=== PATIENT | female | born 1970 | race Caucasian/White ===

== ENCOUNTER 2017-02-07 12:00 | Inpatient (IN) | payer BC ==
[~2017-02-07 12:00] MED LIST: ALLEGRA PO; ANTIVERT25 M1 PO; ANTIVERT25 MG PO; AUGMENTIN 875-1 EAC2 PO; AVONEX30 MCG/0.5 IM; BREO ELLIPTA 21 EACH INH; DARVOCET-N 1001 TAB PO; DOXYCYCLINE HY100 M3 PO; FLEXERIL10 MG PO; FLONASE16 GM NS; GILENYA0.5 MG PO; KEPPRA PO; MOTRIN600 MG PO; MULTIVITAMIN1 CAP; NASONEX17 G1; NORCO 5/325 TAB1 TAB PO; NORVASC5 MG PO; QVAR8.7 G1 IH; VALIUM2 M1 PO; VALIUM5 MG; VALIUM5 MG PO; VITAMIN D35000 UNI2 PO; ZOFRAN4 M2 PO; ZOFRAN4 MG PO
[2017-02-07] MEDS ORDERED: HYDROCODON-ACE1 EA16 PO (12:25)
[2017-02-07] MEDS ORDERED: ULTRAM50 M1 PO (12:25)
[2017-02-07] MEDS ORDERED: AMPYRA10 M1 PO (12:56)
[2017-02-07] MEDS ORDERED: BYSTOLIC5 M1 PO (12:58)
[2017-02-07] MEDS ORDERED: DYMISTA NASAL S23 G1 (12:59)
[2017-02-07] MEDS ORDERED: GILENYA0.5 M1 PO (12:59)
[2017-02-07] MEDS ORDERED: PRINIVIL20 M1 PO (12:59)
[2017-02-07] MEDS ORDERED: OMEPRAZOLE20 M3 PO (12:59)
[2017-02-07] MEDS ORDERED: PROAIR HFA8.5 GM INH (13:00)
[2017-02-07] MEDS ORDERED: NORVASC5 M2 PO (13:00)
[2017-02-07] MEDS ORDERED: IUD (13:00)
[2017-02-07 14:45] LABS: BASO % 0.3 % (0-2); EOSINOPHIL ABSOLUTE COUNT 0.6 tho/cmm (0.0-0.7); HCT-HEMATOCRIT 40.7 % (34.0-49.0); HGB-HEMOGLOBIN 13.7 gm/dl (12.0-15.5); IMMATURE GRANULOCYTES ABSOLUTE 0.02 tho/cmm (0-0.03); IMMATURE GRANULOCYTES PERCENT 0.3 % (0-0.3); LYMPH % 6.1 % (20-45); LYMPH ABSOLUTE COUNT 0.4 tho/cmm (0.8-4.5); MCH (MEAN CORPUSCULAR HGB) 30.4 pg (28.0-32.0); MCHC MEAN CORPUSCULAR HGB CONC 33.7 % (32.0-36.0); MCV (MEAN CELL VOLUME) 90.4 fl (82.0-96.0); MEAN PLATELET VOLUME 11.4 cmc (9.4-12.4); MONO % 13.6 % (0-12); NEUTROPHILS % 70.7 % (40-80); PLATELET COUNT 228 tho/cmm (150-450); RED CELL DISTRIBUTION WIDTH 14.2 % (12.4-16.4); WHITE BLOOD COUNT 7.1 tho/cmm (4.0-10.0)
[2017-02-07 14:59] LABS: ALB/GLOB RATIO 1.2 (0.8-2.0); ALBUMIN 3.7 g/dl (3.5-5.0); ALKALINE PHOSPHATASE 73 U/L (33-138); ALT/SGPT 54 U/L (12-78); ANION GAP 9 mmol/L (0-20); AST/SGOT 37 U/L (10-40); BILIRUBIN,TOTAL 0.4 mg/dl (0-1.5); BLOOD UREA NITROGEN 8 mg/dl (6-24); C-REACTIVE PROTEIN 1.5 mg/dl (0-0.9); CALCIUM 8.6 mg/dl (8.5-10.5); CARBON DIOXIDE-VENOUS 30 mmol/L (22-32); CHLORIDE 107 mmol/l (96-110); CREATININE 0.68 mg/dl (0.50-1.10); GLUCOSE 87 mg/dL (70-110); SODIUM 142 mmol/L (135-145); eGFR VALUE FOR BLACK >90 mL/Min
[2017-02-07 15:05] LABS: ESR-ERYTHROCYTE SED RATE 5 mm/hr (0-20)
[2017-02-08] MEDS ORDERED: PREDNISONE10 M1 PO (13:08)
[2017-02-08] MEDS ORDERED: FLORICAL TABLE1 EACH PO (14:47)
[2017-02-08] MEDS ORDERED: PREDNISONE10 M1 (14:49)
[2017-02-08] MEDS ORDERED: FIORICET 50-301 EAC1 PO (14:56)
== END 2017-02-08 15:25 | DRG 103 ==
LOC: 5EB 12:00
PROVIDERS: Internal Medicine; ADMIT Internal Medicine
DX: G43.909 Migraine, unspecified, not intractable, without status migrainosus (principal); Z68.42 Body mass index [BMI] 45.0-49.9, adult; I10 Essential (primary) hypertension; G35 Multiple sclerosis; K21.9 Gastro-esophageal reflux disease without esophagitis; J45.909 Unspecified asthma, uncomplicated; D35.02 Benign neoplasm of left adrenal gland; H53.149 Visual discomfort, unspecified; Z87.442 Personal history of urinary calculi; Z88.2 Allergy status to sulfonamides; Z88.1 Allergy status to other antibiotic agents; Z88.8 Allergy status to other drugs, medicaments and biological substances; E66.3 Overweight
CPT/HCPCS: A9577; J1100; J2405

== ENCOUNTER 2017-07-11 21:11 | Emergency (ER) | payer OTHER ==
[~2017-07-11] VITALS: Ht 157.5 cm; Wt 113.0 kg
[~2017-07-11 21:11] MED LIST changes: +AMPYRA10 M1 PO; +BYSTOLIC5 M1 PO; +DYMISTA NASAL S23 G1; +FIORICET 50-301 EAC1 PO; +FLORICAL TABLE1 EACH PO; +GILENYA0.5 M1 PO; +HYDROCODON-ACE1 EA16 PO; +IUD; +NORVASC5 M2 PO; +OMEPRAZOLE20 M3 PO; +PREDNISONE10 M1; +PREDNISONE10 M1 PO; +PRINIVIL20 M1 PO; +PROAIR HFA8.5 GM INH; +ULTRAM50 M1 PO
[2017-07-11] MEDS ORDERED: NORVASC10 M2 PO (21:21)
[2017-07-11] MEDS ORDERED: FLONASE ALLERG9.9 ML (21:22)
[2017-07-11] MEDS ORDERED: CEFTIN250 MG/51 PO (21:23)
[2017-07-11] MEDS ORDERED: TESSALON PERLE100 M1 PO (21:24)
[2017-07-11] MEDS ORDERED: HYDROCODONE-HO473 ML PO (22:34)
[2017-07-11] MEDS ORDERED: PREDNISONE20 M1 PO (22:34)
== END 2017-07-11 22:44 ==
LOC: EDMED 21:11
DX: J45.901 Unspecified asthma with (acute) exacerbation (principal); I10 Essential (primary) hypertension
CPT/HCPCS: J2930